=== PATIENT | male | born 1960 | race Two or more races ===

== ENCOUNTER 2022-06-05 09:38 | Emergency (ER) | payer BC ==
[~2022-06-05] VITALS: Ht 170.2 cm; Wt 77.1 kg
[2022-06-05] MEDS ORDERED: LIDOCAINE HCL 1% 20 ML VIAL ONE (09:43)
[2022-06-05] MEDS ORDERED: MORPHINE SULFATE 4 MG/1 ML DISP.SYRIN ONE (09:43)
[2022-06-05] MEDS ORDERED: KETOROLAC TROMETHAMINE 15 MG INJ ONE (09:44)
[2022-06-05] MEDS ORDERED: KETOROLAC TROMETHAMINE 15 MG INJ IVP ONE (09:45)
[2022-06-05] MEDS ORDERED: LIDOCAINE HCL 1% 20 ML VIAL IJ ONE (09:45)
[2022-06-05] MEDS ORDERED: MORPHINE SULFATE 4 MG/1 ML DISP.SYRIN IV ONE (09:45)
--- NOTE | 2022-06-05 09:58 | NUR ---
PT IS IN ROOM #2A. DR VELÁZQUEZ EVALUATED THE PT.
--- NOTE | 2022-06-05 11:57 | NUR ---
CLOSED REDUCTION OF THE RIGHT SHOULDER WAS PERFORMED BY DR VELÁZQUEZ. PT TOLERATED TO PROCEDURE WITHOUT COMPLICATIONS.
--- NOTE | 2022-06-05 12:46 | NUR ---
PT WAS D/C'd TO HOME. D/C INSTRUCTIONS GIVEN TO THE PT BY DR VELÁZQUEZ.
[2022-06-05 12:47] VITALS: BP 143/81
== END 2022-06-05 12:48 | disposition home or self-care (01) ==
LOC: ER 09:42
DX: S43.014A Anterior dislocation of right humerus, initial encounter (principal); W11.XXXA Fall on and from ladder, initial encounter; Y93.H9 Activity, other involving exterior property and land maintenance, building and construction; Y92.018 Other place in single-family (private) house as the place of occurrence of the external cause; I25.10 Atherosclerotic heart disease of native coronary artery without angina pectoris; Z95.5 Presence of coronary angioplasty implant and graft
CPT/HCPCS: 99284; 23650; 96374; 96375; 73030 ×2; J1885; J3490; J2270; A4663